=== PATIENT | female | born 1935 | race Caucasian/White ===

== ENCOUNTER 2020-02-03 09:11 | Emergency (ER) | payer MEDICARE ==
[~2020-02-03] VITALS: Ht 162.6 cm; Wt 80.0 kg
[2020-02-03] MEDS ORDERED: ACETAMINOPHEN 500 MG TABLET PO ONE (09:15)
[2020-02-03] MEDS ORDERED: 0.9% SODIUM CHLORIDE 10 ML SYRINGE IVP PRN (09:15)
[2020-02-03] MEDS ORDERED: SODIUM CHLORIDE 0.9% 1,000 ML IV ONE (09:15)
[2020-02-03 09:43] LABS: GLUCOSE,POINT OF CARE 300 MG/DL (70-110)
[2020-02-03 09:54] LABS: BASOPHILS % (AUTO) 0.2 % (0.0-2.0); EOSINOPHILS % (AUTO) 0 % (1.0-6.0); HEMATOCRIT 34.2 % (36-46); HEMOGLOBIN 11.1 g/dL (12.0-16.0); LYMPHOCYTES # (AUTO) 1.4 K/uL (1.0-4.8); LYMPHOCYTES % (AUTO) 6.7 % (22.0-44.0); MEAN CORPUSCULAR HEMOGLOBIN 30.2 pg (26.0-34.0); MEAN CORPUSCULAR HGB CONC 32.4 G/dL (31.0-37.0); MEAN CORPUSCULAR VOLUME 93 fL (80-100); MONOCYTES # (AUTO) 0.9 K/uL (0.1-1.0); NEUTROPHILS # (AUTO) 19.1 K/uL (1.8-7.7); PLATELET COUNT (AUTO) 276 K/uL (150-450); RED BLOOD CELL COUNT(AUTO) 3.68 MIL/uL (4.00-5.20); RED CELL DISTRIBUTION WIDTH 15.6 % (11.5-14.5)
[2020-02-03 09:57] LABS: NEUTROPHILS % (AUTO) 89.1 % (40.0-70.0)
[2020-02-03] MEDS ORDERED: ACETAMINOPHEN 1000 MG/ISO-OSM 100 ML IV ONE (10:00)
[2020-02-03 10:05] LABS: COVID AG,FIA SOURCE NASOPHARYNGEAL
[2020-02-03 10:15] LABS: APPEARANCE,URINE CLOUDY (CLEAR); GLUCOSE, URINE (UA) 250 mg/dL (NEGATIVE); KETONES,URINE 15 mg/dL (NEGATIVE); LEUKOCYTE ESTERASE ,URINE NEGATIVE (NEGATIVE); NITRATE,URINE NEGATIVE (NEGATIVE); OCCULT BLOOD,URINE NEGATIVE (NEGATIVE); PH,URINE 5.5 (5.0-8.0); PROTEIN,URINE POS 1+ (NEGATIVE); UROBILINOGEN,URINE 0.2 mg/dL (<=1.0)
[2020-02-03 10:20] LABS: LACTIC ACID 1.4 mmol/L (0.4-2.0)
[2020-02-03 10:23] LABS: BILIRUBIN,URINE PRELIM. POSITIVE (NEGATIVE)
[2020-02-03 10:23] LABS: D-DIMER 7.83 mg/L FEU (0.00-0.50); INR 1.1 (0.9-1.1); PROTHROMBIN TIME 11.1 SEC (9.4-11.6)
[2020-02-03 10:26] LABS: BILIRUBIN,TOTAL 0.3 mg/dL (0.1-1.0); CALCIUM, TOTAL 9.7 mg/dL (8.8-10.5); CREATININE 1.29 mg/dL (0.60-1.30); TOTAL PROTEIN, SERUM 7.4 g/dL (6.4-8.2)
[2020-02-03] MEDS ORDERED: SODIUM CHLORIDE 0.9% 100 ML ONE (10:28)
[2020-02-03] MEDS ORDERED: IOVERSOL 350 MG/ML 100 ML VIAL ONE (10:28)
[2020-02-03] MEDS ORDERED: ACET-2865 PO (10:32)
[2020-02-03] MEDS ORDERED: MOM30 PO (10:32)
[2020-02-03] MEDS ORDERED: GABA-1216 PO (10:32)
[2020-02-03] MEDS ORDERED: PIOG30TA10 PO (10:32)
[2020-02-03] MEDS ORDERED: METF-960 PO (10:32)
[2020-02-03] MEDS ORDERED: TRAM50TA4 PO (10:32)
[2020-02-03] MEDS ORDERED: HYDR2TAB5 PO (10:32)
[2020-02-03] MEDS ORDERED: ESOM40CA54 PO (10:32)
[2020-02-03] MEDS ORDERED: GLIP10 PO (10:32)
[2020-02-03] MEDS ORDERED: FENT1PAT26 TD (10:32)
[2020-02-03] MEDS ORDERED: LOSA25TA21 PO (10:32)
[2020-02-03] MEDS ORDERED: [UNRECOGNIZED DRUG - OTHER] PR (10:32)
[2020-02-03] MEDS ORDERED: LACT30L PO (10:32)
[2020-02-03] MEDS ORDERED: BISA-151 PO (10:32)
[2020-02-03] MEDS ORDERED: SIMV-259 PO (10:32)
[2020-02-03 10:33] LABS: BACTERIA,URINE None Seen /HPF (None Seen); RBC,URINE 0-2 /HPF (0-2); WBC,URINE 0-2 /HPF (0-5)
[2020-02-03 10:34] LABS: SQUAMOUS EPITHELIAL CELL,UR Many /LPF (None Seen)
[2020-02-03 10:41] LABS: INFLUENZA TYPE A NEGATIVE FOR TYPE A (NEGATIVE); INFLUENZA TYPE B NEGATIVE FOR TYPE B (NEGATIVE)
[2020-02-03] MEDS: POTASSIUM CHL 10 MEQ/WATER 50 ML IV SCH ×3 (10:43→12:58)
[2020-02-03] MEDS ORDERED: ONDANSETRON HCL 4 MG/2 ML VIAL IVP ONE (10:45)
[2020-02-03] MEDS ORDERED: MORPHINE SULFATE 4 MG/ML SYRINGE IVP ONE (10:45)
[2020-02-03 10:52] LABS: MAGNESIUM 1.7 mg/dL (1.80-2.40)
[2020-02-03] MEDS ORDERED: MAGNESIUM SULFATE 2 GM/WATER 50 ML IV ONE (12:45)
[2020-02-03] MEDS ORDERED: VANCOMYCIN HCL 1 GM/D5% WATER 200 ML IV ONE (12:45)
[2020-02-03] MEDS ORDERED: DiphenhydrAMINE HCL 50 MG/ML VIAL IVP ONE (13:15)
[2020-02-03] MEDS ORDERED: CEFEPIME HCL 2 GM in DEXTROSE 5%-WATER 50 ML IV ONE (14:45)
[2020-02-03] MEDS ORDERED: MORPHINE SULFATE 2 MG/ML SYRINGE IVP PRN (14:45)
[2020-02-03 15:18] VITALS: BP 110/67
== END 2020-02-03 16:22 | disposition short-term general hospital (02) ==
LOC: EMS 09:11
DX: D72.829 Elevated white blood cell count, unspecified (principal); F03.90 Unspecified dementia, unspecified severity, without behavioral disturbance, psychotic disturbance, mood disturbance, and anxiety; J18.9 Pneumonia, unspecified organism; K81.9 Cholecystitis, unspecified; E87.6 Hypokalemia; R10.9 Unspecified abdominal pain; K21.9 Gastro-esophageal reflux disease without esophagitis; I10 Essential (primary) hypertension; E78.00 Pure hypercholesterolemia, unspecified; E11.9 Type 2 diabetes mellitus without complications; Z88.0 Allergy status to penicillin; Z88.6 Allergy status to analgesic agent; Z20.828 Contact with and (suspected) exposure to other viral communicable diseases
CPT/HCPCS: 36415; 70450; 71045; 71275; 74177; 80053; 81001; 82550; 82962; 83605; 83735; 83880; 84145; 84484; 85025; 85379; 85610; 85730; 87040; 87205; 87426; 87804; 93005; 99285; J0131; J0692; J1200; J2270 ×2; J2405; J3370; J3475; J3480; J7030; J7050; J7060; Q9967; U0003